=== PATIENT | male | born 2000 | race Caucasian/White ===

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

== ENCOUNTER 2023-01-02 16:48 | Emergency (ER) | payer OTHER, SELFPAY | END 2023-01-02 18:52 | disposition home or self-care (01) | LOC: ERS 16:48 | DX: J02.9 Acute pharyngitis, unspecified (principal); E03.9 Hypothyroidism, unspecified | CPT/HCPCS: 87081; 87430; 99283 ==